=== PATIENT | female | born 1980 | race Caucasian/White ===

== ENCOUNTER 2023-11-11 09:41 | Emergency (ER) | payer BC, SELFPAY ==
[2023-11-11 09:59] VITALS: BP 113/77; PULSE 81; RESP 20; TEMP 36.3; O2SAT 100; BMI 21.9
--- NOTE | 2023-11-11 10:43 | ED_ITS ---
HPI - General Adult General Time Seen by Provider: 10:43 Date Seen: 11/11/23 Chief complaint: Weakness Stated complaint: chest pain, dizzy , weakness Time Seen by Provider: 11/11/23 10:41 Source: patient and RN notes reviewed Mode of arrival: ambulatory Limitations: no limitations History of Present Illness HPI narrative: Patient is a 43-year-old female that awoke this morning and had full body pain. She states she had pain from her neck down to her toes, hurt everywhere. She is starting to feel like she had if fever that might be developing. Initially when she came in she felt chilled and was shivering. She did not feel fevers up to this point. She has had no cough, no sore throat. She has had respiratory symptoms stemming around Thanksgiving time, has been on 2 courses of antibiotics, most recent was prednisone and doxycycline course. Since being off those, her stomach has been quite irritated. No nausea or vomiting. No change in bowel habits, no urinary symptoms. She states she did have a chest x-ray last time she was in which has been within the last couple weeks. She denies any chronic health issues, specifically no heart or lung problems, states she is otherwise healthy. Related Data Home Medications Medication Instructions Recorded Confirmed No Known Home Medications 11/11/23 11/11/23 Allergies Allergy/AdvReac Type Severity Reaction Status Date / Time No Known Drug Allergies Allergy Verified 10/30/23 13:34 Review of Systems Status of ROS: Reports: 6 or more systems reviewed and unremarkable except as noted in History and below [facility] Medical History Bronchitis ?J40 - Bronchitis, not specified as acute or chronic (ICD-10) Congestion of upper airway ?J98.8 - Other specified respiratory disorders (ICD-10) Social History Smoking Status: Never smoker Do you use any of these nicotine containing products: None How often do you have a drink containing alcohol: never How often do you have six or more drinks on one occasion: Never AUDIT-C Alcohol total score: 0 Non-prescribed substance use: denies use Exam Const: Vital Signs, click to edit/add: Vital Signs - 24 hr 11/11/23 09:59 11/11/23 10:50 11/11/23 10:54 Temperature 97.4 F L 99.5 F Pulse Rate [Pulse Oximeter] 81 Respiratory Rate 20 Blood Pressure [Ri ght Upper Arm] 113/77 Pulse Oximetry 100 97 Oxygen Delivery Me thod Room Air 11/11/23 11:57 Temperature 99.4 F Pulse Rate [Pulse Oximeter] 82 Respiratory Rate 16 Blood Pressure [Ri ght Upper Arm] 109/77 Pulse Oximetry 98 Oxygen Delivery Me thod Room Air This 43-year-old female is alert, interactive, no apparent distress. She is no longer shivering but face looks mildly flushed without rash, skin feels warm, do wonder she is developing a temperature. Sclera clear, extraocular muscles intact, pupils are equal and round. Symmetrical facial function, lips normal, neck is supple, no cervical adenopathy, no thyromegaly masses or nodules. Lungs are clear, good air entry, no wheezing or crackles, she sits up easily. CV regular rate and rhythm, no murmur, normal S1-S2 come no S3-S4. Abdomen is soft, nontender, no masses, no rebound or guarding, no organomegaly, normal b owel sounds heard. No lower extremity edema, was extremities, neurologic exam nonfocal. Documenting provider has reviewed patient's vital signs: yes Course Course ED Course: This 43-year-old female certainly sounds like she may have a new viral illness, possibly influenza, will have nursing staff recheck her temperature. Will place an IV, get IV fluids, give her dose of IV Protonix for her stomach symptoms. Do wonder if she might have some gastritis from the recent prednisone and antibiotics. Will consider infectious etiology including respiratory, potential abdominal pathogens. She will be on pulse oximetry. We discussed doing the triple viral swab, portable chest x-ray and full complement of labs. Reevaluation(s) Time of Reevaluation #1: 12:34 Reevaluation #1: Reviewed with patient her negative testing here including normal chest x-ray. For triple swab is negative but we did review that there can be false negatives. If tested too early, there can be insufficient viral load. She and I discussed potentially doing sinus imaging. She is declining this at this time. She just wants to go home and rest. She is aware that I do recommend repeating the triple viral swab or at least the influenza and COVID tomorrow if she has ongoing symptoms. We did review that influenza needed to be treated within 48 hours to be effective. Vital Signs Vital signs: Initial Vital Signs Temperature 97.4 F L 11/11/23 09:59 Temperature Source Temporal Artery Scan 11/11/23 09:59 Pulse Rate 81 11/11/23 09:59 Respiratory Rate 20 11/11/23 09:59 Blood Pressure 113/77 11/11/23 09:59 Blood Pressure Mean 89 11/11/23 09:59 Blood Pressure Position Supine 11/11/23 09:59 Pulse Oximetry 100 11/11/23 09:59 Oxygen Delivery Method Room Air 11/11/23 09:59 Vital Signs Temperature 97.4 F L 11/11/23 09:59 Pulse Rate 81 11/11/23 09:59 Respiratory Rate 20 11/11/23 09:59 Blood Pressure 113/77 11/11/23 09:59 Pulse Oximetry 100 11/11/23 09:59 Oxygen Delivery Method Room Air 11/11/23 09:59 Temperature 99.4 F 11/11/23 11:57 Pulse Rate 82 11/11/23 11:57 Respiratory Rate 16 11/11/23 11:57 Blood Pressure 109/77 11/11/23 11:57 Pulse Oximetry 98 11/11/23 11:57 Oxygen Delivery Method Room Air 11/11/23 11:57 Medications Administered Medications: Generic Name Dose Route Start Last Admin Trade Name Freq PRN Reason Stop Dose Admin Sodium Chloride 1,000 mls @ 500 mls/hr 11/11/23 10:53 11/11/23 11:00 0.9 % Sodium Chloride 1000 Ml IV 11/11/23 12:52 500 mls/hr .Q2H YADIEL Administration Discontinued Medications Generic Name Dose Route Start Last Admin Trade Name Freq PRN Reason Stop Dose Admin Pantoprazole Sodium 40 mg 11/11/23 10:59 11/11/23 11:15 Pantoprazole Sodium 40 Mg Inj IVP 11/11/23 11:00 40 mg ONCE ONE Administration Medical Decision Making Lab Data Labs: Lab Results 11/11/23 Range/Units 10:45 WBC 10.53 (4.50-11.00) K/uL RBC 5.14 (4.00-5.20) m/uL Hgb 15.6 (12.0-16.0) gm/dL Hct 46.8 (33.0-51.0) % MCV 91 (80-100) fL MCH 30 (26-34) pg MCHC 33 (32-36) gm/dL RDW Coeff of Jamar 11.9 (11.5-15.5) % Plt Count 141 (140-440) K/uL Neut % (Auto) 90.9 H (42.0-72.0) % Lymph % (Auto) 2.7 L (20-44) % [place] % (Auto) 5.1 (0.0-11.0) % Eos % (Auto) 0.5 (0.0-7.0) % Baso % (Auto) 0.1 (0.0-3.0) % Neut # (Auto) 9.60 H (1.7-7.0) K/uL Lymph # (Auto) 0.30 L (0.90-2.90) K/uL [place] # (Auto) 0.50 (0.00-0.90) K/UL Eos # (Auto) 0.05 (0.00-0.50) K/uL Baso # (Auto) 0.01 (0.00-0.30) K/uL Abs Immat Gran (auto) 0.07 (0.00-0.30) K/uL Imm/Tot Granulo (auto) 0.7 % Sodium 137 (135-149) mmol/L Potassium 4.3 (3.6-5.1) mmol/L Chloride 104 (96-114) mmol/L Carbon Dioxide 25 (20-32) mmol/L Anion Gap 8 (7-15) mEq/L BUN 20 (5-24) mg/dL Creatinine 0.6 (0.5-1.5) mg/dL Estimated Creat Clear 95.62 Estimated GFR 114 ml/min Glucose 111 (60-115) mg/dL Lactate 1.2 (0.5-1.9) mmol/L Calcium 8.7 (8.4-10.6) mg/dL Total Bilirubin 0.6 (0.1-1.5) mg/dL AST 22 (12-35) U/L ALT 19 (4-35) U/L Alkaline Phosphatase 60 (40-150) U/L Troponin I < 0.01 L (0.01-0.04) ng/mL C-Reactive Protein 0.7 (0.5-1.0) mg/dL Total Protein 6.9 (6.0-8.3) g/dL Albumin 4.2 (3.3-5.0) g/dL Procalcitonin 0.22 (<0.50) ng/mL SARS-CoV-2 (PCR) Negative SARS-CoV-2 (Negative) Influenza Type A (PCR) Negative PCR FLU A (Negative) Influenza Type B (PCR) Negative PCR FLU B (Negative) RSV (PCR) Negative PCR RSV (Negative) Imaging Data Chest x-ray: Attestation: I have reviewed the pertinent imaging results. Radiologist's impression: Patient: DORENE DAVILA Facility:?[facility] Patient ID:?[id number] Site Patient ID:?[id number]. Site :?[id number] Study:?XRay Chest 1V PORTABLE-11/11/2023 11:19:06 AM Ordering Physician:Mariel Snider Final Report: INDICATION: Dyspnea. TECHNIQUE: Chest radiograph, 1 view. COMPARISON: None. FINDINGS: Lines/Tubes/Devices: None. Mediastinum: Normal cardiac silhouette. Lungs: No focal consolidation. Airways: The trachea remains midline. Pleura: No pleural effusions or pneumothorax. Bones: No acute osseous abnormalities. Upper Abdomen: Unremarkable. IMPRESSION: No acute cardiopulmonary process. Dictated by Driss Martinez MD @ 11/11/2023 12:07:06 PM (Electronic Signature) Discharge Plan Discharge Clinical Impression: Dyspepsia Fever Qualifiers: Encounter type: initial encounter Patient Disposition: Home, Self-Care Condition: Stable Additional Instructions: It is possible that the doxycycline and prednisone have cause some irritation of your stomach. Recommend omeprazole which can be purchased [id number] 20 mg daily for 1-2 weeks. If that is not improving her stomach symptoms, do recommend re-evaluation. I do believe that you are likely developing a new viral illness. Can treat fevers and symptoms with Tylenol and ibuprofen per bottle directions. If the ibuprofen does increase her stomach symptoms, may need to just stick with Tylenol. Do recommend retesting of at least influenza and COVID tomorrow if you have ongoing symptoms. Seek re-evaluation if you feel you are worsening or developing new or concerning symptoms. Activity Level: Activity as Tolerated Discharge Diet: Regular Prescriptions: No Action No Known Home Medications Follow Up/Referrals: Easton Flanagan MD [Primary Care Provider] - Stand Alone Forms: [facility] [employer] Info Instructions
[2023-11-11 10:50] VITALS: O2SAT 97
--- NOTE | 2023-11-11 10:50 | CRLHL7_ITS ---
For Patients: As a result of the Century Cures Act, medical imaging exams and procedure reports are released immediately into your electronic medical record. You may view this report before your referring provider. If you have questions, please contact your health care provider. INDICATION: Dyspnea. TECHNIQUE: Chest radiograph, 1 view. COMPARISON: None. FINDINGS: Lines/Tubes/Devices: None. Mediastinum: Normal cardiac silhouette. Lungs: No focal consolidation. Airways: The trachea remains midline. Pleura: No pleural effusions or pneumothorax. Bones: No acute osseous abnormalities. Upper Abdomen: Unremarkable. IMPRESSION: No acute cardiopulmonary process. Dictated by Driss Martinez MD @ 11/11/2023 12:07:06 PM (Electronically Signed)
[2023-11-11 10:54] VITALS: TEMP 37.5
[2023-11-11 10:59] LABS: Lactate* 1.2 mmol/L (0.5-1.9)
[2023-11-11] MEDS: 0.9 % SODIUM CHLORIDE 1000 ml 1,000 ML 500 ML IV (11:00)
[2023-11-11 11:01] LABS: Basophils Absolute Auto 0.01 K/uL (0.00-0.30); Basophils Percent Auto 0.1 % (0.0-3.0); Eosinophils Absolute Auto 0.05 K/uL (0.00-0.50); Eosinophils Percent Auto 0.5 % (0.0-7.0); Hematocrit 46.8 % (33.0-51.0); Hemoglobin* 15.6 gm/dL (12.0-16.0); Immature Granulocytes Abs Auto 0.07 K/uL (0.00-0.30); Immature Granulocytes Pct Auto 0.7 %; Lymphocytes Percent Auto 2.7 % (20-44); Mean Corpuscular HGB Conc 33 gm/dL (32-36); Mean Corpuscular Hemoglobin 30 pg (26-34); Mean Corpuscular Volume 91 fL (80-100); Monocytes Percent Auto 5.1 % (0.0-11.0); Neutrophils Percent Auto 90.9 % (42.0-72.0); Platelet Count* 141 K/uL (140-440); RDW Coefficient of Variation % 11.9 % (11.5-15.5); Red Blood Count 5.14 m/uL (4.00-5.20); White Blood Count* 10.53 K/uL (4.50-11.00)
[2023-11-11 11:05] LABS: Slide Review Reflex No
[2023-11-11] MEDS: PANTOPRAZOLE SODIUM 40 MG INJ IVP (11:15)
[2023-11-11 11:26] LABS: Albumin* 4.2 g/dL (3.3-5.0); Chloride* 104 mmol/L (96-114); Sodium* 137 mmol/L (135-149)
[2023-11-11 11:27] LABS: Potassium* 4.3 mmol/L (3.6-5.1)
[2023-11-11 11:29] LABS: Alanine Aminotransferase* 19 U/L (4-35); Alkaline Phosphatase* 60 U/L (40-150); Anion Gap 8 mEq/L (7-15); Aspartate Amino Transferase* 22 U/L (12-35); Bilirubin Total* 0.6 mg/dL (0.1-1.5); Blood Urea Nitrogen* 20 mg/dL (5-24); Carbon Dioxide* 25 mmol/L (20-32); Creatinine* 0.6 mg/dL (0.5-1.5); Est. Creatinine Clearance* 95.62; Estimated Glomerular Filt Rate 114 ml/min; Total Protein* 6.9 g/dL (6.0-8.3)
[2023-11-11 11:30] LABS: Calcium* 8.7 mg/dL (8.4-10.6); Glucose* 111 mg/dL (60-115)
[2023-11-11 11:32] LABS: C Reactive Protein* 0.7 mg/dL (0.5-1.0)
[2023-11-11 11:41] LABS: PCR FLU A Negative PCR FLU A (Negative); PCR FLU B Negative PCR FLU B (Negative); PCR RSV Negative PCR RSV (Negative); SARS PCR* Negative SARS-CoV-2 (Negative); Troponin I* < 0.01 ng/mL (0.01-0.04)
[2023-11-11 11:46] LABS: Procalcitonin* 0.22 ng/mL (<0.50)
[2023-11-11 11:57] VITALS: BP 109/77; PULSE 82; RESP 16; TEMP 37.4; O2SAT 98
== END 2023-11-11 12:55 | disposition home or self-care (01) ==
PROVIDERS: Emergency Provider Family Medicine; PCP Family Medicine
DX: R10.13 Epigastric pain (principal)
CPT/HCPCS: 36415; 71045; 80053; 83605; 84145; 84484; 85025; 86140; 87631; 94761; 96361; 96374; 99284; C9113; J7030

== ENCOUNTER 2023-11-25 14:05 | Outpatient (CLI) | payer OTHER, SELFPAY | END 2023-11-25 14:06 | disposition home or self-care (01) | LOC: LKVREF 14:06 | PROVIDERS: PCP Family Medicine; Visit Provider Family Medicine | DX: R50.9 Fever, unspecified (principal); R10.13 Epigastric pain; R13.19 Other dysphagia | CPT/HCPCS: 86141 ==

== ENCOUNTER 2023-11-27 15:15 | Emergency (ER) | payer OTHER, SELFPAY ==
[2023-11-27 15:25] VITALS: BP 157/90; PULSE 98; RESP 16; TEMP 36.6; O2SAT 98; BMI 22.7
--- NOTE | 2023-11-27 15:50 | ED.GENADULT ---
HPI - General Adult General Chief complaint: Unspecified Complaint, Adult Stated complaint: needs fluids Time Seen by Provider: 11/27/23 15:49 History of Present Illness HPI narrative: Patient came from CT scan r/ t epigastric pain, pain with swallowing. Possible esophagitis, ulcer? Patient notes x4 days can't eat/drink r/t pain. 43-year-old woman presenting to the emergency department with severe epigastric pain. She has pain with swallowing. Any oral intake causing intense pain. There is a question of some underlying reflux symptoms and was treated with Azithromycin in September of this last year. With persistent URI was given a course of doxycycline and prednisone. Due to stomach discomfort discontinued course after prednisone complete, not quite having completed doxycycline script. Sounds like on the 21 of November thought she should finish the remaining doxy and thought might have some uti symptoms and got 1 pill stuck in her throat and has had pain in the epigastrium since. Saw primary yesterday and initiated on Augmentin for concern of infection. Was also initiated on sucralfate. She has been taking this. Otherwise takes acetaminophen. Cbc was normal yesterday. Was also than ordered for a CT scan of chest, IV contrast. There was also she says discussion of EGD. She did receive CT chest at this hospital today and presents to the emergency department in increased pain. Pain is sharp and will escalate and then relax. She really has been unable to tolerate any oral ingestion for quite some time and is worried about her hydration status. Pain radiates into the mid back as well when flares but is generally persistent. Has not had any fever. No melena or hematochezia noted. Nauseated with pain. Further questioning reveals that she has had some stomach issues perhaps for some time. Sounds like may have some undiagnosed IBD and maybe gluten intolerance. Related Data Previous Rx's Medication Instructions Recorded amoxicillin 875 mg-potassium 1 tab PO BID #20 tabs 11/25/23 clavulanate 125 mg tablet sucralfate 1 gram tablet 1 g PO QID #20 tabs 11/25/23 famotidine 20 mg tablet 20 mg PO BID #30 tabs 11/27/23 hyoscyamine sulfate 0.125 mg 0.25 mg (2 x 0.125 mg) PO BID-QID 11/27/23 sublingual tablet PRN abdominal spasm #30 tabs lidocaine HCl 2 % mucosal solution 15 - 30 ml PO Q4H PRN pain #100 mL 11/27/23 (Lidocaine Viscous) ondansetron 4 mg disintegrating 4 mg PO Q4-6H PRN nausea and 11/27/23 tablet vomiting #20 tabs Allergies Allergy/AdvReac Type Severity Reaction Status Date / Time No Known Drug Allergies Allergy Verified 11/27/23 15:28 Review of Systems Status of ROS: Reports: 6 or more systems reviewed and unremarkable except as noted in History and below [facility] Social History Smoking Status: Never smoker Do you use any of these nicotine containing products: None Second hand tobacco smoke exposure: No How often do you have a drink containing alcohol: never How often do you have six or more drinks on one occasion: Never AUDIT-C Alcohol total score: 0 Non-prescribed substance use: denies use service: No Exam Narrative: Exam Narrative: She is uncomfortable appearing. Calm. Breathing easily. Heart in elevated rate and regular rhythm on initial auscultation. Lungs appear to be clear. Abdomen is soft and quite tender without peritoneal signs in the epigastrium. Extremities are well perfused without edema. Oropharynx is unremarkable. Const: Vital Signs, click to edit/add: Vital Signs - 24 hr 11/27/23 15:25 11/27/23 17:44 11/27/23 18:00 Temperature 97.9 F Pulse Rate [Pulse Oximeter] 98 70 71 Respiratory Rate 16 18 Blood Pressure [Ri t Upper Arm] 157/90 H 151/99 H 120/86 Pulse Oximetry 98 99 97 Oxygen Delivery Me thod Room Air Room Air Room Air Documenting provider has reviewed patient's vital signs: yes Course Vital Signs Vital signs: Initial Vital Signs Temperature 97.9 F 11/27/23 15:25 Temperature Source Temporal Artery Scan 11/27/23 15:25 Pulse Rate 98 11/27/23 15:25 Respiratory Rate 16 11/27/23 15:25 Blood Pressure 157/90 H 11/27/23 15:25 Blood Pressure Mean 112 H 11/27/23 15:25 Blood Pressure Position Sitting 11/27/23 15:25 Pulse Oximetry 98 11/27/23 15:25 Oxygen Delivery Method Room Air 11/27/23 15:25 Vital Signs Temperature 97.9 F 11/27/23 15:25 Pulse Rate 98 11/27/23 15:25 Respiratory Rate 16 11/27/23 15:25 Blood Pressure 157/90 H 11/27/23 15:25 Pulse Oximetry 98 11/27/23 15:25 Oxygen Delivery Method Room Air 11/27/23 15:25 Temperature 97.9 F 11/27/23 15:25 Pulse Rate 71 11/27/23 18:00 Respiratory Rate 18 11/27/23 17:44 Blood Pressure 120/86 11/27/23 18:00 Pulse Oximetry 97 11/27/23 18:00 Oxygen Delivery Method Room Air 11/27/23 18:00 Medications Administered Medications: Discontinued Medications Generic Name Dose Route Start Last Admin Trade Name Freq PRN Reason Stop Dose Admin Famotidine 40 mg 11/27/23 17:32 11/27/23 17:50 Famotidine 20 Mg Tablet PO 11/27/23 17:33 40 mg ONCE ONE Administration Hyoscyamine 0.25 mg 11/27/23 17:38 11/27/23 17:52 Hyoscyamine Sulfate 0.125 Mg Tab SUBLINGUAL 11/27/23 17:39 0.25 mg ONCE ONE Administration Sodium Chloride 1,000 mls @ 1,000 mls/hr 11/27/23 16:01 11/27/23 17:20 0.9 % Sodium Chloride 1000 Ml IV 11/27/23 17:00 Infused .Q1H ONE Infusion Sodium Chloride 1,000 mls @ 1,000 mls/hr 11/27/23 17:32 11/27/23 18:45 0.9 % Sodium Chloride 1000 Ml IV 11/27/23 18:31 Infused .Q1H ONE Infusion Ketorolac Tromethamine 30 mg 11/27/23 16:03 11/27/23 16:20 Ketorolac 30 Mg/Ml Inj IVP 11/27/23 16:04 30 mg ONCE ONE Administration Lidocaine HCl 7.5 ml 11/27/23 16:01 11/27/23 16:21 Lidocaine Hcl 4 % Top Soln 50 Ml Bottle PO 11/27/23 16:02 7.5 ml ONCE ONE Administration Lidocaine/Aluminum/Magnesium/Simeth 30 ml 11/27/23 16:01 11/27/23 16:21 Mag Hydrox/Aluminum Hyd/Simeth 30 Ml Oral.Susp PO 11/27/23 16:02 30 ml ONCE ONE Administration Nitroglycerin 0.4 mg 11/27/23 17:38 11/27/23 17:54 Nitroglycerin 0.4 Mg Tab.Subl SUBLINGUAL 11/27/23 17:39 0.4 mg ONCE ONE Administration Medical Decision Making MDM Narrative Medical decision making narrative: Given description of symptoms I would expect some erosive esophagitis in. I do not think symptoms are consistent with perforation. Maybe some esophageal spasm intermittently. Up until recently does not seem to have much the way in stomach symptoms to suggest involving ulcer or H pylori gastritis. Given her description of intake would anticipate dehydration. Will be using already placed IV for normal saline hydration. Will check chemistries including lipase and liver and reviewed normal CBC is noted above. Will give ketorolac IV; no NSAIDs oral at this point. GI cocktail. Labs are generally reassuring with the CRP of 1.2. Normal lipase and transaminases. Feels markedly improved with the GI cocktail. I review CT images and radiology over-read of CT imaging is reviewed and as expected WNL. We decided to trial oral intake. Does swallow a Arnie cracker and begins crying in exacerbation of pain. Treated with sublingual hyoscyamine and dose of nitro. Pain began to improve. She says this would be though the course that it then settles; unclear medication effect. Initiating another L of normal saline. She would prefer not to have another dosing of GI cocktail at this point. Did managed to keep down 2 tabs of famotidine. Has also tolerated sips of water. Discussed pain management plan might control discomfort enough to maintain intake at home. See patient discharge plan Lab Data Lab results reviewed: Yes I reviewed the patient's lab results Labs: Lab Results 11/27/23 Range/Units 16:20 Sodium 138 (135-149) mmol/L Potassium 3.7 (3.6-5.1) mmol/L Chloride 103 (96-114) mmol/L Carbon Dioxide 26 (20-32) mmol/L Anion Gap 9 (7-15) mEq/L BUN 9 (5-24) mg/dL Creatinine 0.6 (0.5-1.5) mg/dL Estimated Creat Clear 91.23 Estimated GFR 114 ml/min Glucose 94 (60-115) mg/dL Calcium 9.1 (8.4-10.6) mg/dL Total Bilirubin 0.6 (0.1-1.5) mg/dL Direct Bilirubin 0.1 (0.0-0.5) mg/dL AST 24 (12-35) U/L ALT 18 (4-35) U/L Alkaline Phosphatase 77 (40-150) U/L C-Reactive Protein 1.2 H (0.5-1.0) mg/dL Total Protein 7.3 (6.0-8.3) g/dL Albumin 4.4 (3.3-5.0) g/dL Lipase 73 (23-300) U/L Discharge Plan Discharge Clinical Impression: Dysphagia, Epigastric abdominal pain, Esophagitis, Dehydration Patient Disposition: Home, Self-Care Condition: Improved Additional Instructions: Continue to focus on small frequent hydration. I suppose making anything into a liquid be would be a good idea. Hopefully returning to your vegan diet in some form will be less irritating. Please [place] back to Dr. Mae; I'd probably a message him over the weekend. Hopefully on Thursday you can arrange for an EGD. I am trying to prescribe for you viscous lidocaine that you can combine with your Mylanta/Maalox to numb things up. You might want to take this 15-30 minutes before trying to eat. Also prescribing Percocet and dissolvable Zofran; the latter for nausea. The Percocet is an opiate that you might take an hour before trying to eat. Can continue with Carafate as dosed. I am told to caution you about diarrhea with this medication. If this medication seems too noxious I would discontinue. Continue with omeprazole as prescribed though if you are going to choose between one or the other, I would take the famotidine that will be prescribed today. Can take acetaminophen up to 1000 mg every 6 hours; not to exceed 4000 mg in 24 hours. I would stop the Augmentin (amoxicillin/clavulanic acid) at this time. Prescriptions: New lidocaine HCl [Lidocaine Viscous] 2 % solution 15 - 30 ml PO Q4H PRN (Reason: pain) Qty: 100 1RF Rx Instructions: To mix 1-1 with liquid Mylanta equivalent famotidine 20 mg tablet 20 mg PO BID Qty: 30 1RF hyoscyamine sulfate 0.125 mg tablet, sublingual 0.25 mg PO BID-QID PRN (Reason: abdominal spasm) Qty: 30 0RF ondansetron 4 mg tablet,disintegrating 4 mg PO Q4-6H PRN (Reason: nausea and vomiting) Qty: 20 0RF No Action sucralfate 1 gram tablet 1 g PO QID Qty: 20 1RF amoxicillin-pot clavulanate 875-125 mg tablet 1 tab PO BID Qty: 20 0RF Follow Up/Referrals: Easton Flanagan MD [Primary Care Provider] - Stand Alone Forms: [facility] Info Instructions
[2023-11-27] MEDS: 0.9 % SODIUM CHLORIDE 1000 ml 1,000 ML IV ×2 (16:20→17:30)
[2023-11-27] MEDS: KETOROLAC 30 MG/ML inj IVP (16:20)
[2023-11-27] MEDS: lidocaine HCL 4 % TOP SOLN 50 ML BOTTLE 7.5 ML PO (16:21)
[2023-11-27] MEDS: MAG HYDROX/ALUMINUM HYD/SIMETH 30 ML ORAL.SUSP PO (16:21)
--- NOTE | 2023-11-27 16:33 | ED.NURSE ---
Pt given GI cocktail @ 1620. At 1633, this comic book writer entered to assess beeping IV pump. Pt reported at that time, that burning sensation in throat was gone. Dr. Mcdowell notified @ 1634.
[2023-11-27 17:09] LABS: Albumin* 4.4 g/dL (3.3-5.0); Chloride* 103 mmol/L (96-114); Sodium* 138 mmol/L (135-149)
[2023-11-27 17:10] LABS: Potassium* 3.7 mmol/L (3.6-5.1)
[2023-11-27 17:11] LABS: Creatinine* 0.6 mg/dL (0.5-1.5); Est. Creatinine Clearance* 91.23; Estimated Glomerular Filt Rate 114 ml/min
[2023-11-27 17:12] LABS: Alkaline Phosphatase* 77 U/L (40-150); Anion Gap 9 mEq/L (7-15); Aspartate Amino Transferase* 24 U/L (12-35); Bilirubin Direct* 0.1 mg/dL (0.0-0.5); Bilirubin Total* 0.6 mg/dL (0.1-1.5); Blood Urea Nitrogen* 9 mg/dL (5-24); Carbon Dioxide* 26 mmol/L (20-32); Glucose* 94 mg/dL (60-115); Lipase* 73 U/L (23-300); Total Protein* 7.3 g/dL (6.0-8.3)
[2023-11-27 17:13] LABS: Alanine Aminotransferase* 18 U/L (4-35); Calcium* 9.1 mg/dL (8.4-10.6)
[2023-11-27 17:15] LABS: C Reactive Protein* 1.2 mg/dL (0.5-1.0)
[2023-11-27 17:44] VITALS: BP 151/99; PULSE 70; RESP 18; O2SAT 99
[2023-11-27] MEDS: FAMOTIDINE 20 MG TABLET 40 MG PO (17:50)
[2023-11-27] MEDS: HYOSCYAMINE SULFATE 0.125 MG TAB 0.25 MG SUBLINGUAL (17:52)
[2023-11-27] MEDS: NITROGLYCERIN 0.4 MG TAB.SUBL SUBLINGUAL (17:54)
[2023-11-27 18:00] VITALS: BP 120/86; PULSE 71; O2SAT 97
== END 2023-11-27 20:51 | disposition home or self-care (01) ==
PROVIDERS: Emergency Provider Family Medicine; PCP Family Medicine
DX: R13.10 Dysphagia, unspecified (principal); K20.90 Esophagitis, unspecified without bleeding
CPT/HCPCS: 36415; 71260; 80048; 80076; 83690; 86140; 96374; 99284; A9270; J1885; J7030; Q9967

== ENCOUNTER 2024-08-05 08:05 | Outpatient (CLI) | payer OTHER, SELFPAY | END 2024-08-05 08:06 | disposition home or self-care (01) | PROVIDERS: PCP Family Medicine; Visit Provider Family Medicine | DX: R53.83 Other fatigue (principal); M25.50 Pain in unspecified joint; R10.11 Right upper quadrant pain | CPT/HCPCS: 80053; 80061; 82533; 82652; 83001; 83002; 84443; 86431 ==

== ENCOUNTER 2024-08-22 07:01 | Outpatient (CLI) | payer OTHER, SELFPAY ==
--- NOTE | 2024-08-22 07:15 | CRLHL7_ITS ---
For Patients: As a result of the Century Cures Act, medical imaging exams and procedure reports are released immediately into your electronic medical record. You may view this report before your referring provider. If you have questions, please contact your health care provider. INDICATION: Generalized abdominal pain COMPARISON: none TECHNIQUE: Real time mora scale imaging and color Doppler analysis was performed of the right upper quadrant. FINDINGS: The patient`s liver is of normal size and has uniform echogenicity. There is a normal appearance of the hepatic IVC and proximal abdominal aorta. There is no evidence of ascites. The gallbladder is of normal size and there is no evidence of intraluminal stones or sludge. The gallbladder wall measures 1.7 mm in thickness. The common bile duct is of normal size and measures 2.8 mm in diameter at the level of the shane hepatis. The pancreas appears normal. There is no evidence of a stone or hydronephrosis within the right kidney. The right kidney measures 10.0 cm in length. IMPRESSION: Normal right upper quadrant ultrasound. Dictated by Callum Govea MD @ 08/22/2024 8:45:23 AM (Electronically Signed)
== END 2024-08-22 07:02 | disposition home or self-care (01) ==
LOC: US 07:01
PROVIDERS: PCP Family Medicine; Visit Provider Family Medicine
DX: R10.9 Unspecified abdominal pain (principal)
CPT/HCPCS: 76705

== ENCOUNTER 2024-11-03 15:34 | Outpatient (CLI) | payer OTHER, SELFPAY ==
[2024-11-05 20:11] LABS: HPV Source Cervix; HPV, High Risk by TMA Not Detected
== END 2024-11-03 15:35 | disposition home or self-care (01) ==
PROVIDERS: PCP Family Medicine; Visit Provider Registered Nurse
DX: R53.83 Other fatigue (principal); Z12.4 Encounter for screening for malignant neoplasm of cervix
CPT/HCPCS: 82306; 87624; 87625; 88141; 88142

== ENCOUNTER 2024-11-25 10:56 | Outpatient (CLI) | payer OTHER, SELFPAY ==
--- NOTE | 2024-11-25 11:30 | CRLHL7_ITS ---
For Patients: As a result of the Century Cures Act, medical imaging exams and procedure reports are released immediately into your electronic medical record. You may view this report before your referring provider. If you have questions, please contact your health care provider. INDICATION: Excessive and frequent menses COMPARISON: none TECHNIQUE: 2D mora scale and color Doppler images were acquired of the pelvis using a transabdominal and transvaginal approach. FINDINGS: Sonographic images demonstrate a normal size and smooth outer contour of the uterus. Uterus measures 10.7 cm in length by 5.0 cm in AP diameter by 6.1 cm in transverse dimension. section scar is present. The endometrial lining measures 11 mm in composite thickness. The right ovary measures 2.5 x 2.1 x 2.7 cm in size and the left ovary measures 4.1 x 2.5 x 2.4 cm. The ovaries demonstrate normal arterial and venous blood flow on color Doppler analysis. There are no suspicious fluid collections within the cul-de-sac. Dominant follicle left ovary measures 2.2 cm. IMPRESSION: Endometrium is mildly heterogeneous and measures 11 millimeters. No endometrial fluid. No uterine fibroid. Dictated by Callum Govea MD @ 11/25/2024 12:04:27 PM (Electronically Signed)
== END 2024-11-25 10:57 | disposition home or self-care (01) ==
LOC: US 10:58
PROVIDERS: PCP Family Medicine; Visit Provider Registered Nurse
DX: N92.0 Excessive and frequent menstruation with regular cycle (principal); R93.89 Abnormal findings on diagnostic imaging of other specified body structures; R10.2 Pelvic and perineal pain
CPT/HCPCS: 76830; 76856

== ENCOUNTER 2024-11-29 18:53 | Outpatient (CLI) | payer OTHER, SELFPAY ==
--- NOTE | 2024-11-29 19:00 | CRLHL7_ITS ---
For Patients: As a result of the Century Cures Act, medical imaging exams and procedure reports are released immediately into your electronic medical record. You may view this report before your referring provider. If you have questions, please contact your health care provider. BILATERAL SCREENING MAMMOGRAM WITH COMPUTER-AIDED DETECTION AND TOMOSYNTHESIS TECHNIQUE: CC, MLO and Implant displaced views were obtained. These mammographic images have been obtained using full-field digital technique. These mammographic images were interpreted with the benefit of computer-aided detection. Breast Tomosynthesis was used in this interpretation. COMPARISON FILM: 02/05/22, 08/03/20. FINDINGS: The breasts are extremely dense, which lowers the sensitivity of mammography. IMPRESSION: There is no radiographic evidence for malignancy. ASSESSMENT: BI-RADS Category 2: Benign RECOMMENDATION: Routine screening mammogram in 1 year. A lay language report of this examination will be provided to the patient. Callum Govea M.D. Diagnostic Radiologist [email or web address] SP/Dictated by: Callum Govea MD @ 11/30/2024 12:37:00 PM (Electronically Signed)
== END 2024-11-29 18:54 | disposition home or self-care (01) ==
PROVIDERS: PCP Family Medicine; Visit Provider Registered Nurse
DX: Z12.31 Encounter for screening mammogram for malignant neoplasm of breast (principal); R92.343 Mammographic extreme density, bilateral breasts
CPT/HCPCS: 77063; 77067

== ENCOUNTER 2025-07-28 13:42 | Outpatient (CLI) | payer OTHER, SELFPAY | END 2025-07-28 13:43 | disposition home or self-care (01) | LOC: LKVREF 13:44 | PROVIDERS: PCP Family Medicine; Visit Provider Family Medicine | DX: R10.9 Unspecified abdominal pain (principal); D64.9 Anemia, unspecified; Z01.818 Encounter for other preprocedural examination | CPT/HCPCS: 80076 ==